=== PATIENT | female | born 2000 | race African-American/Black ===

== ENCOUNTER 2022-05-30 11:57 | Emergency (ER) | payer MEDICAID ==
[~2022-05-30] VITALS: Ht 157.5 cm; Wt 73.0 kg
[2022-05-30 12:21] VITALS: BP 128/85
== END 2022-05-30 19:58 | disposition left against medical advice (07) ==
LOC: ER 12:08
DX: Z53.21 Procedure and treatment not carried out due to patient leaving prior to being seen by health care provider (principal)